=== PATIENT | male | born 1930 | race African-American/Black ===

== ENCOUNTER 2019-08-24 21:20 | Emergency (ER) | payer OTHER ==
[~2019-08-24] VITALS: Ht 185.4 cm; Wt 80.7 kg
[2019-08-24 23:07] LABS: URINE BILIRUBIN NEGATIVE (Negative); URINE BLOOD 3+ (Negative); URINE CLARITY CLOUDY; URINE COLOR YELLOW; URINE GLUCOSE-RANDOM NEGATIVE (Negative); URINE KETONES NEGATIVE (Negative); URINE LEUKOCYTES-REFLEX 1+ (Negative); URINE NITRITE-REFLEX NEGATIVE (Negative); URINE PROTEIN 1+ (Negative); URINE UROBILINOGEN 0.2 E.U./dl (0.2-1.0)
[2019-08-24 23:17] LABS: BACTERIA-REFLEX >30 Many /HPF (None Seen); CRYSTALS None Seen /LPF (None Seen); HYALINE CASTS 0-3 Few /LPF (None Seen); SQUAMOUS 0-3 Few /LPF (0-3); URINE RBC 3-10 Few /HPF (0-2); URINE WBC-REFLEX >25 Many /HPF (0-5)
[2019-08-24] MEDS ORDERED: AUGMENTIN 875-1 EACH PO (23:33)
[2019-08-24 23:48] VITALS: BP 151/67
== END 2019-08-24 23:48 | disposition home or self-care (01) ==
LOC: M.ERS 21:20
PROVIDERS: Emergency Medicine Emergency Medical Services
DX: T83.098A Other mechanical complication of other urinary catheter, initial encounter (principal); N39.0 Urinary tract infection, site not specified; I10 Essential (primary) hypertension; E11.9 Type 2 diabetes mellitus without complications; I25.10 Atherosclerotic heart disease of native coronary artery without angina pectoris; Y83.8 Other surgical procedures as the cause of abnormal reaction of the patient, or of later complication, without mention of misadventure at the time of the procedure; Y92.89 Other specified places as the place of occurrence of the external cause

== ENCOUNTER 2019-10-16 16:12 | Emergency (ER) | payer OTHER ==
[~2019-10-16] VITALS: Ht 188 cm; Wt 80.7 kg
[~2019-10-16 16:12] MED LIST: AUGMENTIN 875-1 EACH PO
[2019-10-16] MEDS ORDERED: ASA81BEC PO (16:32)
[2019-10-16] MEDS ORDERED: BEANO300 UNIT PO (16:33)
[2019-10-16] MEDS ORDERED: B-121000 MC2 INJECTION (16:33)
[2019-10-16] MEDS ORDERED: FISH OIL 1,001000 M2 PO (16:34)
[2019-10-16] MEDS ORDERED: DOXAZOSIN MESYLA2 MG PO (16:34)
[2019-10-16] MEDS ORDERED: FUROSEMIDE 40 M40 MG PO (16:35)
[2019-10-16] MEDS ORDERED: JANUVIA50 MG PO (16:35)
[2019-10-16] MEDS ORDERED: FLONASE 0.05%50 MCG NARES (16:35)
[2019-10-16] MEDS ORDERED: LACTASE1 GM PO (16:35)
[2019-10-16] MEDS ORDERED: KRILL OIL500 MG PO (16:35)
[2019-10-16] MEDS ORDERED: PRINIVIL20 M1 PO (16:36)
[2019-10-16] MEDS ORDERED: LEVO-T75 MCG PO (16:36)
[2019-10-16] MEDS ORDERED: LAMICTAL5 MG PO (16:36)
[2019-10-16] MEDS ORDERED: [UNRECOGNIZED DRUG - OTHER] SUBLING (16:37)
[2019-10-16] MEDS ORDERED: MULTIPLE VITAM1 EAC2 PO (16:37)
[2019-10-16] MEDS ORDERED: TOPROL XL25 MG PO (16:37)
[2019-10-16] MEDS ORDERED: NITROSTAT0.4 M1 SUBLING (16:38)
[2019-10-16] MEDS ORDERED: PSYLLIUM FIBE0.52 GM PO (16:38)
[2019-10-16] MEDS ORDERED: MYRBETRIQ25 MG PO (16:38)
[2019-10-16] MEDS ORDERED: SPIRONOLACTONE25 MG PO (16:39)
[2019-10-16] MEDS ORDERED: ROSUVASTATIN CA10 MG PO (16:39)
[2019-10-16] MEDS ORDERED: TROSPIUM CHLORI60 MG PO (16:39)
[2019-10-16] MEDS ORDERED: VITAMIN D3 COM1 EACH PO (16:40)
[2019-10-16 17:56] LABS: URINE BILIRUBIN NEGATIVE (Negative); URINE BLOOD 3+ (Negative); URINE COLOR YELLOW; URINE GLUCOSE-RANDOM NEGATIVE (Negative); URINE KETONES NEGATIVE (Negative); URINE NITRITE-REFLEX NEGATIVE (Negative); URINE PROTEIN 2+ (Negative); URINE SPECIFIC GRAVITY 1.025 (1.005-1.030); URINE UROBILINOGEN 0.2 E.U./dl (0.2-1.0)
[2019-10-16 17:57] LABS: URINE CLARITY HAZY; URINE LEUKOCYTES-REFLEX 2+ (Negative)
[2019-10-16 18:03] LABS: SQUAMOUS 0-3 Few /LPF (0-3)
[2019-10-16 18:04] LABS: URINE WBC-REFLEX 6-15 Few /HPF (0-5)
[2019-10-16 18:05] LABS: BACTERIA-REFLEX None Seen /HPF (None Seen); CASTS None Seen /LPF (None Seen); CRYSTALS None Seen /LPF (None Seen)
[2019-10-16] MEDS ORDERED: KEFLEX500 M1 PO (18:23)
[2019-10-16 18:52] VITALS: BP 141/63
== END 2019-10-16 18:53 | disposition home or self-care (01) ==
LOC: M.ERS 16:12
PROVIDERS: Nurse Practitioner Psychiatric/Mental Health
DX: N39.0 Urinary tract infection, site not specified (principal); R32 Unspecified urinary incontinence; I10 Essential (primary) hypertension; E11.9 Type 2 diabetes mellitus without complications; I25.10 Atherosclerotic heart disease of native coronary artery without angina pectoris; Z85.46 Personal history of malignant neoplasm of prostate; Z95.5 Presence of coronary angioplasty implant and graft